=== PATIENT | male | born 1965 | race Caucasian/White ===

== ENCOUNTER → 2024-03-31 06:18 | Day surgery (SDC) | payer BC, SELFPAY | LOC: GI 06:18 | PROVIDERS: ATTENDING PHYSICIAN Internal Medicine; FAMILY PHYSICIAN Internal Medicine | DX: Z12.11 Encounter for screening for malignant neoplasm of colon (principal); Z80.0 Family history of malignant neoplasm of digestive organs; K64.8 Other hemorrhoids; K63.5 Polyp of colon; K62.1 Rectal polyp | CPT/HCPCS: 45385; 45380; 88305 ==